=== PATIENT | male | born 2000 | race Caucasian/White ===

== ENCOUNTER 2019-02-24 22:23 | Emergency (ER) | payer SELFPAY ==
[~2019-02-24] VITALS: Ht 170.2 cm; Wt 54.5 kg
[~2019-02-24 22:23] MED LIST: KEFLEX500 MG PO; TORADOL10 MG PO
[2019-02-24 22:25] VITALS: Ht 170.2 cm; Wt 54.5 kg
[2019-02-25 00:31] VITALS: BP 120/62
== END 2019-02-25 00:31 | disposition home or self-care (01) ==
LOC: D.ER 22:23
DX: S01.112A Laceration without foreign body of left eyelid and periocular area, initial encounter (principal); Y04.2XXA Assault by strike against or bumped into by another person, initial encounter; F17.200 Nicotine dependence, unspecified, uncomplicated; S02.2XXA Fracture of nasal bones, initial encounter for closed fracture